=== PATIENT | male | born 1975 | race Caucasian/White ===

== ENCOUNTER 2017-10-16 13:31 | Emergency (ER) | payer SELFPAY ==
[2017-10-16 13:53] VITALS: BP 96/68
--- NOTE | 2017-10-16 14:43 | EDM.PDOC ---
ED HPI GENERAL MEDICAL PROBLEM - General Chief Complaint: Behavioral/Psych Stated Complaint: [facility] Time Seen by Provider: 10/16/17 14:25 Source of Information: Reports: Patient History Limitations: Reports: No Limitations - History of Present Illness INITIAL COMMENTS - FREE TEXT/NARRATIVE: Patient is a 42-year-old male with a history of alcohol abuse who was transported by ambulance to the ED. Patient was [place] in an [place] unconscious by security. EMS was called administered Narcan intranasal to which they state patient came around. Patient never stopped breathing. Upon arrival patient has been calling staff "assholes" obviously impaired. Patient does not admit to being under the influence of alcohol or any recreational drugs. He does have a small laceration to the right eyebrow with no bleeding present. In addition has a contusion/abrasions to the right upper shoulder with no swelling or bony abnormalities. Patient does becomes very agitated when attempting to talk to him or do something to him. - Related Data Allergies Allergy/AdvReac Type Severity Reaction Status Date / Time No Known Allergies Allergy Verified 10/16/17 13:42 Home Meds: Home Meds . [No Known Home Meds] 10/16/17 [History] Past Medical History - Past Health History Medical/Surgical History: Denies Medical/Surgical History Social & Family History - Tobacco Use Smoking Status *Q: Current Every Day Smoker Years of Tobacco use: 17 Used Tobacco, but Quit: No Second Hand Smoke Exposure: Yes - Alcohol Use Days Per Week of Alcohol Use: 7 Number of Drinks Per Day: 10 Total Drinks Per Week: 70 - Recreational Drug Use Recreational Drug Use: Yes Drug Use in Last 12 Months: Yes Recreational Drug Type: Reports: Marijuana/Hashish, Methamphetamine Recreational Drug Use Frequency: Not Used In Over 1 Month Recreational Drug Last Use: last used 2 years ago ED ROS GENERAL - Review of Systems Review Of Systems: Unable To Obtain - Physical Exam Exam: See Below Exam Limited By: Intoxication General Appearance: No Apparent Distress Eye Exam: Bilateral Eye: EOMI, PERRL Ears: Normal External Exam, Hearing Grossly Normal Nose: Normal Inspection Throat/Mouth: Normal Inspection, Normal Oropharynx, Normal Voice, No Airway Compromise Head Exam: Other (Approximately 2 cm laceration over the right eyebrow with no obvious bony abnormalities. Minimal swelling present. No ecchymosis. Dried blood present.) Neck: Normal Inspection, Supple, Tender Midline (Mild tenderness midline with palpation.) Respiratory/Chest: No Respiratory Distress, Lungs Clear, Normal Breath Sounds, No Accessory Muscle Use Cardiovascular: Normal Peripheral Pulses, Regular Rate, Rhythm GI/Abdominal: Normal Bowel Sounds, Soft, Non-Tender, No Organomegaly, No Distention Neuro Exam (Abbreviated): No Motor/Sensory Deficits, Slow to Respond, Other ( Moves all extremities. With stimuli responds stating he does not want to answer any questions.) Back Exam: Normal Inspection Extremities: Normal Inspection, Normal Range of Motion, Non-Tender, No Pedal Edema, Normal Capillary Refill Psychiatric: Other (Lethargic) Skin Exam: Warm, Dry, Intact, Normal Color Course - Vital Signs Last Recorded V/S: Last Vital Signs Temp 98.7 F 10/16/17 13:42 Pulse 105 H 10/16/17 13:42 Resp 24 H 10/16/17 13:42 BP 96/68 10/16/17 13:42 Pulse Ox 95 10/16/17 13:42 - Orders/Labs/Meds Labs: Laboratory Tests 10/16/17 10/16/17 10/16/17 Range/Units 14:40 14:40 15:00 WBC 9.07 (4.23-9.07) K/mm3 RBC 4.48 L (4.63-6.08) M/mm3 Hgb 15.0 (13.7-17.5) gm/L Hct 43.0 (40.1-51.0) % MCV 96.0 H (79.0-92.2) fl MCH 33.5 H (25.7-32.2) pg MCHC 34.9 (32.2-35.5) g/dl RDW Std Deviation 41.3 (35.1-43.9) fL Plt Count 229 (163-337) K/mm3 MPV 8.9 L (9.4-12.3) fl Neut % (Auto) 77.9 H (34.0-67.9) % Lymph % (Auto) 15.1 L (21.8-53.1) % Craig % (Auto) 6.4 (5.3-12.2) % Eos % (Auto) 0.3 L (0.8-7.0) Baso % (Auto) 0.1 (0.1-1.2) % Neut # (Auto) 7.06 H (1.78-5.38) K/mm3 Lymph # (Auto) 1.37 (1.32-3.57) K/mm3 Craig # (Auto) 0.58 (0.30-0.82) K/mm3 Eos # (Auto) 0.03 L (0.04-0.54) K/mm3 Baso # (Auto) 0.01 (0.01-0.08) K/mm3 Sodium (136-145) mEq/L Potassium (3.5-5.1) mEq/L Chloride (98-107) mEq/L Carbon Dioxide (21-32) mEq/L Anion Gap (5-15) BUN (7-18) mg/dL Creatinine (0.7-1.3) mg/dL Est Cr Clr Drug Dosing mL/min Estimated GFR (MDRD) (>60) mL/min BUN/Creatinine Ratio (14-18) Glucose (74-106) mg/dL Calcium (8.5-10.1) mg/dL Total Bilirubin (0.2-1.0) mg/dL AST (15-37) U/L ALT (16-63) U/L Alkaline Phosphatase (46-116) U/L Total Protein (6.4-8.2) g/dl Albumin (3.4-5.0) g/dl Globulin gm/dL Albumin/Globulin Ratio (1-2) TSH 3rd Generation (0.358-3.74) uIU/mL Urine Color Yellow (Yellow) Urine Appearance Clear (Clear) Urine pH 6.5 (5.0-8.0) Ur Specific [place] 1.015 (1.005-1.030) Urine Protein Trace H (Negative) Urine Glucose (UA) Negative (Negative) Urine Ketones Trace H (Negative) Urine Occult Blood Negative (Negative) Urine Nitrite Negative (Negative) Urine Bilirubin Negative (Negative) Urine Urobilinogen 1.0 (0.2-1.0) Ur Leukocyte Esterase Negative (Negative) Urine RBC Not seen (0-5) /hpf Urine WBC 0-5 (0-5) /hpf Ur Epithelial Cells 0-5 (0-5) /hpf Urine Bacteria Not seen (FEW) /hpf Urine Mucus Not seen (FEW) /hpf Urine Opiates Screen Negative (NEGATIVE) Ur Buprenorphine Scrn Negative (NEGATIVE) Ur Oxycodone Screen Negative (NEGATIVE) Urine Methadone Screen Negative (NEGATIVE) Ur Propoxyphene Screen Negative (NEGATIVE) Ur Barbiturates Screen Negative (NEGATIVE) Ur Tricyclics Screen Negative (NEGATIVE) Ur Phencyclidine Scrn Negative (NEGATIVE) Ur Amphetamine Screen Presumptive positive H (NEGATIVE) U Methamphetamines Scrn Negative (NEGATIVE) U Benzodiazepines Scrn Negative (NEGATIVE) U Cocaine Metab Screen Negative (NEGATIVE) U Marijuana (THC) Screen Presumptive positive H (NEGATIVE) Ethyl Alcohol (0.00) gm% 10/16/17 Range/Units 15:00 WBC (4.23-9.07) K/mm3 RBC (4.63-6.08) M/mm3 Hgb (13.7-17.5) gm/L Hct (40.1-51.0) % MCV (79.0-92.2) fl MCH (25.7-32.2) pg MCHC (32.2-35.5) g/dl RDW Std Deviation (35.1-43.9) fL Plt Count (163-337) K/mm3 MPV (9.4-12.3) fl Neut % (Auto) (34.0-67.9) % Lymph % (Auto) (21.8-53.1) % Craig % (Auto) (5.3-12.2) % Eos % (Auto) (0.8-7.0) Baso % (Auto) (0.1-1.2) % Neut # (Auto) (1.78-5.38) K/mm3 Lymph # (Auto) (1.32-3.57) K/mm3 Craig # (Auto) (0.30-0.82) K/mm3 Eos # (Auto) (0.04-0.54) K/mm3 Baso # (Auto) (0.01-0.08) K/mm3 Sodium 139 (136-145) mEq/L Potassium 3.6 (3.5-5.1) mEq/L Chloride 104 (98-107) mEq/L Carbon Dioxide 20 L (21-32) mEq/L Anion Gap 18.6 H (5-15) BUN 16 (7-18) mg/dL Creatinine 1.0 (0.7-1.3) mg/dL Est Cr Clr Drug Dosing 97.21 mL/min Estimated GFR (MDRD) > 60 (>60) mL/min BUN/Creatinine Ratio 16.0 (14-18) Glucose 107 H (74-106) mg/dL Calcium 8.7 (8.5-10.1) mg/dL Total Bilirubin 0.3 (0.2-1.0) mg/dL AST 31 (15-37) U/L ALT 34 (16-63) U/L Alkaline Phosphatase 87 (46-116) U/L Total Protein 7.5 (6.4-8.2) g/dl Albumin 3.9 (3.4-5.0) g/dl Globulin 3.6 gm/dL Albumin/Globulin Ratio 1.1 (1-2) TSH 3rd Generation 0.884 (0.358-3.74) uIU/mL Urine Color (Yellow) Urine Appearance (Clear) Urine pH (5.0-8.0) Ur Specific [place] (1.005-1.030) Urine Protein (Negative) Urine Glucose (UA) (Negative) Urine Ketones (Negative) Urine Occult Blood (Negative) Urine Nitrite (Negative) Urine Bilirubin (Negative) Urine Urobilinogen (0.2-1.0) Ur Leukocyte Esterase (Negative) Urine RBC (0-5) /hpf Urine WBC (0-5) /hpf Ur Epithelial Cells (0-5) /hpf Urine Bacteria (FEW) /hpf Urine Mucus (FEW) /hpf Urine Opiates Screen (NEGATIVE) Ur Buprenorphine Scrn (NEGATIVE) Ur Oxycodone Screen (NEGATIVE) Urine Methadone Screen (NEGATIVE) Ur Propoxyphene Screen (NEGATIVE) Ur Barbiturates Screen (NEGATIVE) Ur Tricyclics Screen (NEGATIVE) Ur Phencyclidine Scrn (NEGATIVE) Ur Amphetamine Screen (NEGATIVE) U Methamphetamines Scrn (NEGATIVE) U Benzodiazepines Scrn (NEGATIVE) U Cocaine Metab Screen (NEGATIVE) U Marijuana (THC) Screen (NEGATIVE) Ethyl Alcohol 0.25 (0.00) gm% - Re-Assessments/Exams Free Text/Narrative Re-Assessment/Exam: Will obtain basic labs including CBC, chem 14, urine drug tox, serum EtOH, TSH, and UA. Studies include CT of the head and cervical spine. 10/16/17 15:12 patient started to argue with nursing staff stated he wanted to leave. Patient was swinging at the nursing staff. Walking around in the ED looking for an accident. Instructed the patient to return back to the room to which he did. [employer] have been notified. Patient is alert and oriented [address] of the head and cervical spine reviewed with Dr. Nick with no concerning findings. [employer] has arrived unable to restrain patient. Patient left the E.D. with no shirt on his own accord. [employer] will ensure patient leaves safely. Labs reviewed: White blood cell count 9.07, hemoglobin 15.0, neutrophil percentage 77.9, neutrophil #7.06, sodium 139, potassium 3.6, AG 18.6, creatinine 1.0, glucose 107, LFTs normal, TSH 0.84, UA negative for any concerns , urine drug tox positive for amphetamines/marijuana, serum EtOH 0.25. Departure - Departure Time of Disposition: 15:16 Disposition: Eloped 07 Condition: Fair Clinical Impression: Drug abuse, Alcohol abuse - Discharge Information Referrals: PCP,None [Primary Care Provider] - Forms: ED Department Discharge
--- NOTE | 2017-10-16 15:20 | CT ---
CT cervical spine Technique: Multiple axial sections were obtained from above C1 inferiorly to the bottom of T1. Reconstructed sagittal and coronal images were reviewed. Findings: Posterior spurring is noted at C3-4. Mild degenerative apophyseal change is noted at C3-4 on the right side. These findings cause a moderate amount of right-sided neural foraminal stenosis at C3-4. Mild bilateral neural foraminal stenosis is noted at C5-6 due to posterolateral spurring. Degenerative spurring is noted within the uncovertebral joints at C3-4 and on the left side at C4-5. Minimal spurring is noted within the uncovertebral joint on the right side at C5-6. Minimal scoliosis is present. Vertebral bodies and posterior arches are intact with no fracture. No abnormal subluxation is seen. Impression: 1. Mild degenerative change as noted above. 2. No acute fracture or abnormal subluxation is seen on CT study of the cervical spine. Diagnostic code #2
--- NOTE | 2017-10-16 15:22 | CT ---
Head CT Technique: Multiple axial sections through the brain were obtained. Intravenous contrast was not utilized. Comparison: No previous intracranial imaging. Findings: Ventricles along with basal cisterns and sulci over the convexities are within normal limits. No abnormal parenchymal densities are seen. No evidence of intracranial hemorrhage. No midline shift or mass effect is seen. Bone window settings were reviewed which show slight atherosclerotic calcification within the carotid siphon and within the left vertebral vessel. No acute calvarial abnormality is seen. There is moderate mucosal thickening noted within the left maxillary sinus and mild mucosal thickening seen within the ethmoid sinuses. Impression: 1. Sinus findings which likely are chronic. 2. No acute intracranial abnormality is seen. 3. Mild atherosclerotic calcification within the carotid siphon and left vertebral vessel. Diagnostic code #2
== END 2017-10-16 15:15 | disposition left against medical advice (07) ==
LOC: JD.ED 13:31
DX: S01.81XA Laceration without foreign body of other part of head, initial encounter (principal); F15.10 Other stimulant abuse, uncomplicated; F10.129 Alcohol abuse with intoxication, unspecified; F17.210 Nicotine dependence, cigarettes, uncomplicated; Y90.0 Blood alcohol level of less than 20 mg/100 ml; X58.XXXA Exposure to other specified factors, initial encounter
CPT/HCPCS: 36415; 70450; 72125; 80053; 80306; 81001; 84443; 85025; 99285; G0480; P9612; 80349; 99284